=== PATIENT | female | born 1955 | race Caucasian/White ===

== ENCOUNTER 2019-03-29 02:07 | Emergency (ER) | payer OTHER ==
[~2019-03-29] VITALS: Ht 157.5 cm; Wt 69.4 kg
[~2019-03-29 02:07] MED LIST: CEFTIN 250 MG250 MG PO; CLARITIN10 MG PO; EVISTA PO; FLOMAX0.4 MG PO; GENTAMICIN SU3 MG/ML OPHTHALMIC; HYDROCODONE-AP1 EAC6 PO; IBUPROFEN 600600 M1 PO; MULTI VITAMIN1 EACH PO; NAPROSYN500 MG PO; NORCO 5-325 TA1 EACH PO; ONDANSETRON HCL4 M2 PO; PERCOCET 5-3251 EACH PO; SENNA-DOCUSATE1 EAC1 PO; TRICOR145 MG PO; TUMS PO; ZANTAC 150MG T150 MG PO; ZOFRAN ODT4 MG PO; ZOLOFT50 MG PO; ZYRTEC10 M5 PO
[2019-03-29] MEDS ORDERED: CELEBREX 200 M200 M1 PO (02:17)
[2019-03-29] MEDS ORDERED: FLEXERIL PO (02:17)
[2019-03-29] MEDS ORDERED: MEDROLDOSEPACK PO (03:42)
[2019-03-29] MEDS ORDERED: NORCO 7.5-3251 EACH PO (03:42)
[2019-03-29 03:51] VITALS: BP 170/89
[2019-03-29 04:33] LABS: ABSOLUTE EOSINOPHILS 0.1 thou/uL (0.0-0.7); ABSOLUTE LYMPHOCYTES 1.3 thou/uL (0.8-5.3); ABSOLUTE MONOCYTES 0.4 thou/uL (0.0-1.2); ABSOLUTE NEUTROPHILS 2.9 thou/uL (1.6-8.1); BASOPHILS 0.6 %; HEMATOCRIT 40.6 % (37.0-47.0); HEMOGLOBIN 13.7 gm/dL (12.0-15.0); LYMPHOCYTES 27.4 %; MCH 31.1 pg (26.0-34.0); MCHC 33.8 g/dL (28.0-37.0); MCV 92.2 fL (80.0-100.0); MONOCYTES 8.4 %; MPV 9.5 fl. (7.2-11.1); NUCLEATED RBCS 0 /100WBC; PLATELET COUNT* 291 thou/uL (150-400); POLYS 60.6 %; RBC 4.41 mil/uL (4.20-5.00); RDW-CV 12.6 % (10.5-14.5); WBC 4.7 thou/uL (4.0-11.0)
[2019-03-29 04:37] LABS: POTASSIUM 3.5 mmol/L (3.5-5.1)
[2019-03-29 04:38] LABS: CALCIUM 9.1 mg/dL (8.5-10.1); CREATININE 0.8 mg/dL (0.6-1.3)
== END 2019-03-29 03:51 | disposition home or self-care (01) ==
LOC: M.ERS 02:07
PROVIDERS: Emergency Medicine
DX: M79.604 Pain in right leg (principal); M54.10 Radiculopathy, site unspecified; E78.00 Pure hypercholesterolemia, unspecified; Z98.890 Other specified postprocedural states

== ENCOUNTER → 2019-09-06 | Outpatient (CLI) | payer OTHER ==
[~2019-09-06] MED LIST changes: +CELEBREX 200 M200 M1 PO; +FLEXERIL PO; +MEDROLDOSEPACK PO; +NORCO 7.5-3251 EACH PO
== END ==
LOC: M.ULTRA 07:30
DX: K76.0 Fatty (change of) liver, not elsewhere classified (principal)